=== PATIENT | male | born 1980 | race American Indian/Alaskan Native ===

== ENCOUNTER 2016-12-15 22:29 | Emergency (ER) | payer SELFPAY ==
[2016-12-15] MEDS ORDERED: NORVASC ONE (23:07)
[2016-12-15] MEDS ORDERED: AMBIEN ONE (23:08)
[2016-12-16 00:11] VITALS: BP 154/97
== END 2016-12-16 21:31 | disposition left against medical advice (07) ==
LOC: ED 22:29
DX: L02.32 Furuncle of buttock (principal); Z53.21 Procedure and treatment not carried out due to patient leaving prior to being seen by health care provider